=== PATIENT | male | born 1980 | race Caucasian/White ===

== ENCOUNTER 2016-11-24 10:40 | Emergency (ER) | payer MEDICAID, SELFPAY ==
[~2016-11-24] VITALS: Ht 172.7 cm; Wt 74.8 kg
[2016-11-24] MEDS ORDERED: OMEP40CA2 PO (11:05)
[2016-11-24 12:34] LABS: EOS # 0.1 K/mm3 (0.0-0.50); EOS % 1.7 % (0.0-3.0); LARGE UNSTAINED CELL # 0.1 K/mm3 (0.0-0.4); LARGE UNSTAINED CELL % 2.8 % (0.0-4.0); LYMPH # 1.9 K/mm3 (1.5-4.5); LYMPH % 42.7 % (24.0-44.0); MEAN CORPUSCULAR HEMOGLOBIN 30.5 pg (27.0-33.0); MEAN CORPUSCULAR HGB CONC 35.1 g/dl (32.0-36.5); MONO # 0.3 K/mm3 (0.0-0.8); MONO % 8.2 % (0.0-5.0); NEUTROPHILS # 1.8 K/mm3 (1.8-7.7); NEUTROPHILS % 43.7 % (36.0-66.0); PLATELET COUNT, AUTOMATED 284 k/mm3 (150-450); RED CELL DISTRIBUTION WIDTH 12.1 % (11.5-14.5); WHITE BLOOD COUNT 4.2 K/mm3 (4.0-10.0)
--- NOTE | 2016-11-24 12:40 | REP ---
CT Head without contrast HISTORY: Dizziness COMPARISON: None There is no intraparenchymal hemorrhage, acute infarct, mass or midline shift. The ventricular system is normal in appearance. There is no extra cerebral collection. There is no fracture. The visualized sinuses are clear. IMPRESSION: There is no intracranial lesion. Signed by Jake Stewart MD 11/24/2016 12:33 P
[2016-11-24 13:05] LABS: ANION GAP 5 MEQ/L (8-16); BLOOD UREA NITROGEN 14 MG/DL (7-18); CALCIUM LEVEL 9.1 MG/DL (8.5-10.1); CARBON DIOXIDE LEVEL 31 MEQ/L (21-32); CHLORIDE LEVEL 107 MEQ/L (98-107); CREATININE FOR GFR 0.86 MG/DL (0.70-1.30); GLOMERULAR FILTRATION RATE > 60.0 (>60); GLUCOSE, FASTING 102 MG/DL (70-105); POTASSIUM SERUM 3.9 MEQ/L (3.5-5.1); SODIUM LEVEL 143 MEQ/L (136-145)
[2016-11-24 14:33] VITALS: BP 125/89
--- NOTE | 2016-11-24 20:25 | ECGEPIP ---
Stationary ECG Study [facility] Test Date: 2016-11-24 Pat Name: LISET HARRY Department: Room: - Gender: M Software Engineer Backend: demario : 1980 Requested By: Delaney Marcial Order Number: [id number] Reading MD: Manoj Rey Measurements Intervals [place] Rate: 63 P: 55 AK: 151 QRS: 29 QRSD: 109 T: 54 QT: 376 QTc: 385 Interpretive Statements SINUS RHYTHM Comparison tracing not on file Electronically Signed On 11-24-2016 20:24:45 EST by Manoj Rey
== END 2016-11-24 14:50 | disposition home or self-care (01) ==
LOC: M ED 13:20
DX: R00.2 Palpitations (principal); R42 Dizziness and giddiness; K21.9 Gastro-esophageal reflux disease without esophagitis; E78.9 Disorder of lipoprotein metabolism, unspecified; Z88.0 Allergy status to penicillin; Z79.899 Other long term (current) drug therapy

== ENCOUNTER 2017-07-03 14:44 | Emergency (ER) | payer BC, MEDICAID ==
[~2017-07-03] VITALS: Ht 174 cm; Wt 72.7 kg
[~2017-07-03 14:44] MED LIST: OMEP40CA2 PO
[2017-07-03] MEDS ORDERED: diphenhydrAMINE INJ 50MG/ML VIAL (J1200) IV STA (17:34)
[2017-07-03] MEDS ORDERED: methylPREDNISolone INJ 125 MG/2 ML VIAL (J2930) IV ONE (17:45)
[2017-07-03] MEDS ORDERED: NS 1,000 ML IV ONE (17:45)
[2017-07-03 18:22] LABS: MEAN CORPUSCULAR VOLUME 88.4 fl (80.0-96.0); RED CELL DISTRIBUTION WIDTH 12.7 % (11.5-14.5); WHITE BLOOD COUNT 7.2 10^3/uL (4.0-10.0)
[2017-07-03 18:45] LABS: ANION GAP 5 MEQ/L (8-16); BLOOD UREA NITROGEN 16 MG/DL (7-18); CALCIUM LEVEL 9.9 MG/DL (8.5-10.1); CARBON DIOXIDE LEVEL 31 MEQ/L (21-32); CHLORIDE LEVEL 106 MEQ/L (98-107); CREATININE FOR GFR 0.97 MG/DL (0.70-1.30); GLOMERULAR FILTRATION RATE > 60.0 (>60); GLUCOSE, FASTING 100 MG/DL (70-105); POTASSIUM SERUM 4.4 MEQ/L (3.5-5.1); SODIUM LEVEL 142 MEQ/L (136-145)
[2017-07-03] MEDS ORDERED: CLEO300C2 PO (19:17)
[2017-07-03] MEDS ORDERED: BENA25TA10 PO (19:17)
[2017-07-03] MEDS ORDERED: PRED20TA PO (19:17)
[2017-07-03 19:42] VITALS: BP 136/72
== END 2017-07-03 19:44 | disposition home or self-care (01) ==
LOC: M ED 14:44
DX: R21 Rash and other nonspecific skin eruption (principal); T65.6X1A Toxic effect of paints and dyes, not elsewhere classified, accidental (unintentional), initial encounter; Y92.9 Unspecified place or not applicable; Y93.9 Activity, unspecified; Z79.899 Other long term (current) drug therapy; Z88.0 Allergy status to penicillin
CPT/HCPCS: 80048; 85027; 87040; 96374; 96375; 99283; J1200; J2930